=== PATIENT | male | born 1985 | race Caucasian/White ===

== ENCOUNTER 2022-11-19 15:22 | Emergency (ER) | payer OTHER, SELFPAY ==
[2022-11-19 15:40] VITALS: BP 131/70; PULSE 80; RESP 18; TEMP 36.4; O2SAT 100; BMI 21.3
--- NOTE | 2022-11-19 15:58 | CRLHL7_ITS ---
For Patients: As a result of the Cures Act, medical imaging exams and procedure reports are released immediately into your electronic medical record. You may view this report before your referring provider. If you have questions, please contact your health care provider. Indication: Trauma. Technique: Pelvis/right hip, 3 views. Comparison: None. Findings/Impression: Bones: Alignment is normal. No displaced fractures or bone lesions. Joint spaces: Unremarkable. Soft tissues: Unremarkable. Dictated by Angel Gallo MD @ 11/19/2022 4:31:44 PM (Electronically Signed)
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
[2022-11-19 16:20] VITALS: BP 120/90; PULSE 66; RESP 18; O2SAT 99
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
--- NOTE | 2022-11-19 16:30 | ED.NURSE ---
ACLS passenger screener present and used thought ED stay.
== END 2022-11-19 16:50 | disposition home or self-care (01) ==
LOC: ED 16:05
PROVIDERS: Emergency Provider Emergency Medicine Emergency Medical Services
DX: S70.01XA Contusion of right hip, initial encounter (principal); D68.51 Activated protein C resistance; V19.88XA Pedal cyclist (driver) (passenger) injured in other specified transport accidents, initial encounter
CPT/HCPCS: 73502; 99283; 99284